=== PATIENT | female | born 1930 | race Caucasian/White ===

== ENCOUNTER 2016-12-04 16:30 | Emergency (ER) | payer MEDICARE, BC ==
[~2016-12-04] VITALS: Ht 165.1 cm; Wt 63.6 kg
[~2016-12-04 16:30] MED LIST: AMLODIPINE; ASPI325T6 PO; ASPIR-LOW81 MG PO; ASPIRIN 81M81 MG/TA2 PO; ASPIRIN E.C. 8181 MG PO; ATENOLOL25 MG PO; BONIVA PO; CALAN SR240 MG PO; CALCIUM600 MG PO; CALTRATE 600 +1 TAB PO; CELEBREX 200MG200 MG PO; CENTRUM1 TAB PO; DIOVAN PO; DOXYCYCLINE 50M50 MG PO; DULCOLAX S10 MG/SUPP RC; FORTEO250 MCG/ML SC; HCTZ; HCTZ 25MG TAB25 MG PO; MAREPA1200 MG PO; MIRALAX PA17 GM/Dose PO; MULTIPLE VITAMI1 CAP PO; NORCO 325 MG-51 TAB PO; NORCO 325 MG-7.1 TAB PO; NORVASC2.5 MG PO; NORVASC5 MG PO; OSCAL 500 TAB500 MG PO; OXYCODONE5 M1 PO; PLAQUENIL PO; PRILOSEC 10MG10 MG PO; PRILOSEC 20MG20 MG PO; PROTONIX 40MG T40 MG PO; REMERON 15M15 MG/TA1 PO; TENORMIN 2525 MG/TAB PO; ULTRAM 50MG TAB50 MG PO; VERAPAMIL120 MG/TA1 PO; VICODIN 5/5001 UDTAB PO; VITAMIN B122500 MCG SL; VITAMIN D 1001000 IU PO; ZOLOFT 50MG50 MG PO
[2016-12-04 16:36] VITALS: TEMP 98.1
[2016-12-04 17:14] LABS: BASO % 0.8 % (0.0-2.0); EOS # 0.2 (0.0-0.7); EOS % 3.2 % (0-4.0); GRAN # 2.9 (1.4-6.5); GRAN % 57.1 % (42.2-75.2); HEMATOCRIT 36.2 % (37.0-47.0); HEMOGLOBIN 11.9 g/dl (12.5-16.0); LYMPH # 1.5 (1.2-3.4); LYMPH % 28.6 % (20.0-51.0); MEAN CELL VOLUME 94 fl (80.0-100.0); MEAN CORPUSCULAR HEMOGLOBIN 31 pg (27.0-31.0); MEAN CORPUSCULAR HGB CONC 33 g/dl (33.0-37.0); MEAN PLATELET VOLUME 9.4 fl (7.4-10.4); MONO # 0.5 (0.1-0.6); MONO % 10.3 % (1.7-9.3); PLATELET COUNT 199 K/mm3 (130-400); RED BLOOD COUNT 3.87 M/mm3 (4.10-5.30); WHITE BLOOD COUNT 5.1 K/mm3 (4.8-10.8)
[2016-12-04 17:27] LABS: ADJUSTED CALCIUM 9.3 mg/dL (8.4-10.2); ALANINE AMINOTRANSFERASE 38 U/L (9-52); ALBUMIN 4.2 gm/dL (3.5-5.0); ALKALINE PHOSPHATASE 65 U/L (50-136); ANION GAP 11 mmol/L (7-16); BILIRUBIN,TOTAL 0.7 mg/dL (0.0-1.0); BLOOD UREA NITROGEN 11 mg/dL (7-17); CALCIUM 9.5 mg/dL (8.4-10.2); CARBON DIOXIDE 27 mmol/L (22-30); CHLORIDE 96 mmol/L (98-107); CREATININE, serum 0.69 mg/dL (0.52-1.25); GLUCOSE 92 mg/dL (74-106); POTASSIUM 3.7 mmol/L (3.4-5.0); SODIUM 133 mmol/L (137-145); TOTAL PROTEIN 7.8 gm/dL (6.4-8.2)
[2016-12-04 17:38] LABS: B-TYPE NATRIURETIC PEPTIDE 767 pg/mL (0-450); TROPONIN-I < 0.012 ng/mL (0.000-0.034)
[2016-12-04] MEDS ORDERED: PRINIVIL40 MG PO (17:54)
[2016-12-04] MEDS ORDERED: PROTONIX20 MG PO (17:55)
[2016-12-04] MEDS ORDERED: ZOLOFT 25MG25 MG PO (17:56)
[2016-12-04 19:13] VITALS: BP 135/82; PULSE 67
== END 2016-12-04 19:13 | disposition home or self-care (01) ==
LOC: COL.ER 16:30
PROVIDERS: Emergency Medicine
DX: I10 Essential (primary) hypertension (principal)

== ENCOUNTER → 2016-12-24 | Outpatient (CLI) | payer MEDICARE, BC ==
[~2016-12-24] MED LIST changes: +PRINIVIL40 MG PO; +PROTONIX20 MG PO; +ZOLOFT 25MG25 MG PO
== END ==
LOC: COL.RAD 09:07
DX: M25.512 Pain in left shoulder (principal)
CPT/HCPCS: J3301; Q9967

== ENCOUNTER → 2017-02-02 | Outpatient (CLI) | payer MEDICARE, BC | LOC: COL.RAD 13:06 | DX: K22.4 Dyskinesia of esophagus (principal); K44.9 Diaphragmatic hernia without obstruction or gangrene ==

== ENCOUNTER 2017-03-02 14:52 | Outpatient (RCR) | payer MEDICARE, BC | END 2017-05-31 | disposition home or self-care (01) | LOC: WSST | DX: K22.4 Dyskinesia of esophagus (principal) | CPT/HCPCS: G8996-GN; G8997-GN ==

== ENCOUNTER → 2017-09-06 | Outpatient (CLI) | payer MEDICARE, BC | LOC: MC.RAD 13:44 | DX: Z12.31 Encounter for screening mammogram for malignant neoplasm of breast (principal) ==

== ENCOUNTER 2018-01-01 13:16 | Emergency (ER) | payer MEDICARE, BC ==
[~2018-01-01] VITALS: Ht 167.6 cm; Wt 72.7 kg
[~2018-01-01 13:16] MED LIST changes: +NORVASC 5MG5 MG/TAB PO; -NORVASC2.5 MG PO; -PROTONIX20 MG PO
[2018-01-01 13:22] VITALS: TEMP 97.8
[2018-01-01] MEDS ORDERED: COZAAR100 MG PO (14:36)
[2018-01-01] MEDS ORDERED: TOPROL XL 50MG50 MG PO (14:36)
[2018-01-01] MEDS ORDERED: ALDACTONE 25MG25 M1 PO (14:36)
[2018-01-01 15:58] VITALS: BP 155/90; PULSE 64
== END 2018-01-01 16:07 | disposition home or self-care (01) ==
LOC: COL.ER 13:20
DX: S00.93XA Contusion of unspecified part of head, initial encounter (principal); Z79.82 Long term (current) use of aspirin; W18.09XA Striking against other object with subsequent fall, initial encounter; Y92.009 Unspecified place in unspecified non-institutional (private) residence as the place of occurrence of the external cause

== ENCOUNTER 2018-03-28 14:00 | Outpatient (RCR) | payer MEDICARE, BC ==
[~2018-03-28 14:00] MED LIST changes: +ALDACTONE 25MG25 M1 PO; +COZAAR100 MG PO; +TOPROL XL 50MG50 MG PO
== END 2018-04-03 13:48 | disposition home or self-care (01) ==
LOC: MKS.ESL.PT 14:00
DX: R26.89 Other abnormalities of gait and mobility (principal); R29.6 Repeated falls; Z87.81 Personal history of (healed) traumatic fracture
CPT/HCPCS: G8978-GP; G8979-GP

== ENCOUNTER → 2018-04-18 | Outpatient (CLI) | payer MEDICARE, BC | LOC: COL.RAD 10:21 | DX: M25.512 Pain in left shoulder (principal) | CPT/HCPCS: J3301; Q9967 ==

== ENCOUNTER → 2018-05-22 | Outpatient (CLI) | payer MEDICARE, BC | LOC: COL.RAD 12:46 | DX: M25.551 Pain in right hip (principal) | CPT/HCPCS: J3301; Q9967 ==

== ENCOUNTER 2018-06-29 10:21 | Inpatient (IN) | payer MEDICARE, BC ==
[~2018-06-29] VITALS: Ht 152.4 cm; Wt 62.0 kg
[2018-07-26] MEDS ORDERED: NORCO 325 MG-51 TAB PO (07:02)
[2018-07-26] MEDS ORDERED: ADVIL200 MG PO (07:44)
[2018-07-26] MEDS ORDERED: FERRO-TIME325 MG PO (07:45)
[2018-07-26] MEDS ORDERED: TYLENOL 500MG500 MG PO (07:45)
[2018-07-26] MEDS ORDERED: VITAMIN C500 MG PO (07:46)
[2018-07-26] MEDS ORDERED: FOLIC ACID 40400 MCG PO (07:46)
[2018-07-26] MEDS ORDERED: ULTRAM ER100 MG PO (07:48)
[2018-08-03] VITALS (11 sets, daily range): BP systolic 97–129; BP diastolic 57–69; PULSE 60–76; TEMP 97.2–98.4
[2018-08-04 00:21] VITALS: BP 117/55; PULSE 73; TEMP 98.2
[2018-08-04 04:31] VITALS: BP 136/70; PULSE 72; TEMP 98.5
[2018-08-04 07:58] VITALS: BP 124/87; PULSE 68; TEMP 97.9
[2018-08-04 08:41] LABS: HEMATOCRIT 27.7 % (37.0-47.0); HEMOGLOBIN 9.2 g/dl (12.5-16.0)
[2018-08-04 11:34] VITALS: BP 130/63; PULSE 66; TEMP 97.6
[2018-08-04 16:18] VITALS: BP 116/62; PULSE 68; TEMP 97.5
[2018-08-04 19:32] VITALS: BP 127/68; PULSE 67; TEMP 97.6
[2018-08-05 03:39] VITALS: BP 117/63; PULSE 62; TEMP 98.2
[2018-08-05 07:29] VITALS: BP 127/72; PULSE 76; TEMP 98.8
[2018-08-05 12:55] VITALS: BP 123/70; PULSE 78; TEMP 98.8
[2018-08-05 17:25] VITALS: BP 125/72; PULSE 78; TEMP 98.8
[2018-08-05 19:28] VITALS: BP 140/95; PULSE 64; TEMP 98.2
[2018-08-05 20:59] VITALS: BP 121/61; PULSE 62; TEMP 97.7
[2018-08-06 05:17] VITALS: BP 128/59; PULSE 64; TEMP 98.2
[2018-08-06 07:57] LABS: BASO % 0.3 % (0.0-2.0); EOS # 0.1 (0.0-0.7); EOS % 1.7 % (0-4.0); GRAN # 5.3 (1.4-6.5); GRAN % 75.1 % (42.2-75.2); LYMPH % 14.9 % (20.0-51.0); MEAN CELL VOLUME 97 fl (80.0-100.0); MEAN CORPUSCULAR HGB CONC 33 g/dl (33.0-37.0); MEAN PLATELET VOLUME 8.9 fl (7.4-10.4); MONO # 0.5 (0.1-0.6); MONO % 7.4 % (1.7-9.3); PLATELET COUNT 186 K/mm3 (130-400); REDCELL DISTRIBUTION WIDTH-CV 14.3 % (11.5-14.5)
[2018-08-06 08:00] LABS: HEMATOCRIT 28.2 % (37.0-47.0); HEMOGLOBIN 9.3 g/dl (12.5-16.0); MEAN CORPUSCULAR HEMOGLOBIN 32 pg (27.0-31.0)
[2018-08-06 08:44] VITALS: BP 106/56; PULSE 64; TEMP 97.7
[2018-08-06 12:58] VITALS: BP 107/70; PULSE 62; TEMP 97.9
[2018-08-06 13:58] VITALS: BP 107/70; PULSE 62; TEMP 97.9
== END 2018-08-06 15:10 | DRG 470 ==
LOC: JCC 08-03 06:30
PROVIDERS: Orthopaedic Surgery
PROC: 0QP604Z Removal of Internal Fixation Device from Right Upper Femur, Open Approach (ICD-10-PCS; 2018-08-03)
PROC: 0SR90JA Replacement of Right Hip Joint with Synthetic Substitute, Uncemented, Open Approach (ICD-10-PCS; principal; 2018-08-03 11:15)
DX: M16.51 Unilateral post-traumatic osteoarthritis, right hip (principal); M87.222 Osteonecrosis due to previous trauma, left humerus; M87.251 Osteonecrosis due to previous trauma, right femur; M19.112 Post-traumatic osteoarthritis, left shoulder; F32.9 Major depressive disorder, single episode, unspecified; I10 Essential (primary) hypertension; M32.9 Systemic lupus erythematosus, unspecified; M06.9 Rheumatoid arthritis, unspecified; M35.00 Sjogren syndrome, unspecified
CPT/HCPCS: A4314; A9284; C1713; C1776; J0690; J1100; J2250; J2405; J2704; J3010; J7120

== ENCOUNTER → 2018-07-27 | Outpatient (CLI) | payer MEDICARE, BC ==
[~2018-07-27] MED LIST changes: +ADVIL200 MG PO; +FERRO-TIME325 MG PO; +FOLIC ACID 40400 MCG PO; +TYLENOL 500MG500 MG PO; +ULTRAM ER100 MG PO; +VITAMIN C500 MG PO
[2018-07-27 16:16] LABS: HIV 1/2 Antibodies Non-Reactive; HIV-1p24 Antigen Non-Reactive
== END ==
LOC: COL.LAB 15:10
PROVIDERS: Orthopaedic Surgery
DX: Z01.812 Encounter for preprocedural laboratory examination (principal); M16.11 Unilateral primary osteoarthritis, right hip

== ENCOUNTER → 2018-07-31 | Outpatient (CLI) | payer MEDICARE, BC | LOC: COL.VAS 08:00 | DX: I35.1 Nonrheumatic aortic (valve) insufficiency (principal); I34.0 Nonrheumatic mitral (valve) insufficiency; I51.7 Cardiomegaly ==

== ENCOUNTER → 2018-08-01 | Outpatient (REF) ==
[2018-08-01 09:35] LABS: COLLECTION METHOD CLEAN CATCH
[2018-08-01 09:46] LABS: BASO % 0.2 % (0.0-2.0); EOS % 0.4 % (0-4.0); GRAN # 4.1 (1.4-6.5); GRAN % 73.1 % (42.2-75.2); HEMOGLOBIN 10.7 g/dl (12.5-16.0); LYMPH # 0.9 (1.2-3.4); LYMPH % 15.3 % (20.0-51.0); MEAN CELL VOLUME 96 fl (80.0-100.0); MEAN CORPUSCULAR HEMOGLOBIN 32 pg (27.0-31.0); MEAN CORPUSCULAR HGB CONC 33 g/dl (33.0-37.0); MEAN PLATELET VOLUME 9.1 fl (7.4-10.4); MONO # 0.5 (0.1-0.6); MONO % 9.6 % (1.7-9.3); PLATELET COUNT 164 K/mm3 (130-400); RED BLOOD COUNT 3.35 M/mm3 (4.10-5.30); REDCELL DISTRIBUTION WIDTH-CV 14.1 % (11.5-14.5)
[2018-08-01 09:48] LABS: HEMATOCRIT 32.1 % (37.0-47.0)
[2018-08-01 09:49] LABS: MUCOUS Present /lpf; PH 7 (5-8); SQUAMOUS EPITHELIAL 0-2 /hpf; URINE APPEARANCE Clear; URINE BACTERIA None Seen /hpf; URINE BILIRUBIN Negative (NEGATIVE); URINE BLOOD Negative (NEGATIVE); URINE COLOR Yellow; URINE GLUCOSE Negative (NEGATIVE); URINE KETONE Negative (NEGATIVE); URINE LEUKOCYTE ESTERASE Negative (NEGATIVE); URINE NITRATE Negative (NEGATIVE); URINE PROTEIN(semi-quant) Negative (NEGATIVE); URINE RBC 0-2 /hpf; URINE UROBILINOGEN Negative (NEGATIVE)
[2018-08-01 10:01] LABS: BILIRUBIN,TOTAL 0.4 mg/dL (0.0-1.0); CALCIUM 8.6 mg/dL (8.4-10.2); CREATININE, serum 0.62 mg/dL (0.52-1.25); TOTAL PROTEIN 5.6 gm/dL (6.4-8.2)
== END ==
LOC: ZLAB.STJ 09:33
PROVIDERS: Urology
DX: R68.89 Other general symptoms and signs (principal); R79.89 Other specified abnormal findings of blood chemistry; R79.1 Abnormal coagulation profile

== ENCOUNTER 2018-10-24 11:36 | Inpatient (IN) | payer MEDICARE, BC ==
[~2018-10-24] VITALS: Ht 167.6 cm; Wt 69.2 kg
[~2018-10-24 11:36] MED LIST changes: +CALCIUM CARBON650 M2; -CALCIUM600 MG PO; +MOTRIN 600600 MG/TAB PO
[2018-10-24 14:12] VITALS: BP 131/72; PULSE 58; TEMP 97.6
--- NOTE | 2018-10-24 15:11 | NUR ---
Patient arrived from Medical unit to room #336 at 1 PM. Therapy started working with her right away. Patient has had one episode of emises since arriving and working with OT, but now reports that she is feeling better. Will continue to monitor.
[2018-10-24 16:54] VITALS: BP 148/61; PULSE 56
--- NOTE | 2018-10-24 17:00 | NUR ---
Patient had another episode of emises when working with OT following shower. See new order for Zofran per Dr. Newman. Patient was able to take the zofran. Will continue to monitor.
--- NOTE | 2018-10-24 23:37 | NUR ---
THE PT WAS BEDRESTING, VISITING WITH HER SON THE SHIFT BEGAN. SON STOPPED AT NURSES STATION AND VERBALIZED THAT HE WILL BRING DPOA\LIVING WILL PAPERWORK. ASSESSMENT B COMPLETED. HS SNACK OF VANILLA SHAKE AND KIMBERLI CRACKERS. FOLLOWED BY ANIBAL 2 TABS AND HS MEDS. APPEARS TO HAVE GOOD EFFECT A SHORT TIME LATER, RESTING WITH EYES CLOSED, RESP EVEN.
--- NOTE | 2018-10-25 03:11 | NUR ---
bedresting with eyes closed, resp even. uses call light appropriately.
[2018-10-25 06:03] VITALS: BP 128/69; PULSE 62; TEMP 97.4
[2018-10-25 06:06] LABS: BASO % 0.4 % (0.0-2.0); EOS # 0.1 (0.0-0.7); EOS % 2.4 % (0-4.0); LYMPH # 0.9 (1.2-3.4); LYMPH % 20.2 % (20.0-51.0); MEAN CELL VOLUME 96 fl (80.0-100.0); MEAN CORPUSCULAR HGB CONC 33 g/dl (33.0-37.0); MONO # 0.5 (0.1-0.6); MONO % 11.6 % (1.7-9.3); PLATELET COUNT 129 K/mm3 (130-400); REDCELL DISTRIBUTION WIDTH-CV 13.5 % (11.5-14.5)
[2018-10-25 06:11] LABS: HEMATOCRIT 29.8 % (37.0-47.0); HEMOGLOBIN 9.8 g/dl (12.5-16.0); MEAN CORPUSCULAR HEMOGLOBIN 32 pg (27.0-31.0)
[2018-10-25 06:15] LABS: CALCIUM 9.2 mg/dL (8.4-10.2); CREATININE, serum 0.92 mg/dL (0.52-1.25); MAGNESIUM 1.7 mg/dL (1.6-2.3); POTASSIUM 4.5 mmol/L (3.4-5.0)
--- NOTE | 2018-10-25 08:31 | NUR ---
Report from VEENA Prieto. Pt ate breakfast in bed, took pills whole with thin liquids, pain meds given. Pt one assist with providing a hand for her to pull herself out of bed, set up assist for upper body dressing, pt got up with two attempts from bed and used 4WW and GB to amb to BR with toilet riser. Assisted with lower body dressing d/t time for PT. Tylenol given. Pt alert and pleasant, wearing own underwear and continent, passed lots of gas.
--- NOTE | 2018-10-25 12:21 | NUR ---
First visit from the lithograph designer. No needs right now.
--- NOTE | 2018-10-25 14:04 | NUR ---
Family brought DNR and Living Will papers, copies to chart. She stated that pt had trouble with [place] before. stopped [place] and started bowel meds and PRN ultram. Pt to chair for lunch.
--- NOTE | 2018-10-25 14:23 | NUR ---
POOJA Villegas reports that pt was having difficulty voiding but no discomfort.
--- NOTE | 2018-10-25 14:30 | NUR ---
Pt took pain meds with antolin crackers and sprite.
--- NOTE | 2018-10-25 15:41 | NUR ---
VICTORINA met with patient to discuss discharge planning and IPR team conference notes. Patient lives alone in [place]. [facility] had [facility] but reports she was dismissed tuesday. She is open to having them again if it recommended. Patients PCP is Dr Henderson and she obtains her medicaiotns from [facility]. Patient has a cane and a walker at home. VICTORINA talked with her about scheduling a family meeting. She would like VICTORINA to call her son Carlos ([phone]). VICTORINA discussed the set dc date of 11/03. She is comfortable with this at this time. VICTORINA called Carlos who reports him and his will be able to be at a family meeting at 2pm on Tue11/01/18. VICTORINA will continue to follow.
[2018-10-25 17:46] VITALS: BP 114/64; PULSE 60; TEMP 97.6
--- NOTE | 2018-10-25 19:30 | NUR ---
HS meds all reviewed and given. Patient min 1 with walker to the bathroom and manages all toileting tasks. Undresses self and dresses upper body with set up help only and lower body with assist right pajama pants onto RLE. Max assist with legs into bed and elevated on pillow. Declines snack at this time.
--- NOTE | 2018-10-25 21:00 | NUR ---
Patient rests with eyes closed. Respirations with ease.
--- NOTE | 2018-10-26 00:02 | NUR ---
PATIENT REPORTS CONTINUEING PELVIC SPASMS/CRAMPS 8-06/26 AFTER TRAMADOL REPEATED EARLIER. NELLY DUENAS NOTIFIED AND NEW ORDER RECEIVED TO GIVEN ZOFRAN WAIT 15 MINUTES AND GIVE ROXYCODONE 5MG. REVIEWED WITH PATIENT AND GIVEN ORDERED. PATIENTS HIPS REPOSTIONED OVER IN BED AND SCDS REMOVED.
--- NOTE | 2018-10-26 00:20 | NUR ---
Into give roxycodone following zofran and patient declines at this time. Reports spasms gone since removal of scd's.
--- NOTE | 2018-10-26 02:32 | NUR ---
PATIENT RESTS WITH EYES CLOSED. RESPIRATIONS WITH EASE.
--- NOTE | 2018-10-26 03:45 | NUR ---
Patient having high level of pain and cramping sensation back to pelvis. Up with heavy mod assist to sit up in bed. Mod assist to stand from bed and stool riser. Also required assist to pull up pants on left side. Max assist with legs into bed. Declines tramadol and tylenol. Crackers given and takes marisol 5mg.
[2018-10-26 03:57] VITALS: BP 128/86; PULSE 70; TEMP 97.7
[2018-10-26 04:00] VITALS: BP 114/65; PULSE 66; TEMP 98.2
[2018-10-26 07:50] VITALS: BP 142/78
--- NOTE | 2018-10-26 09:48 | NUR ---
Patient currently working with therapy at this time. Patient had a lot of pain this morning and was given an ice pack to put on pelvic area as well as prn mireya. Patient reporting that Tramadol has not been very effective for her yesterday. Will continue to monitor pain status throughout day.
--- NOTE | 2018-10-26 11:30 | NUR ---
Patient reports not having a BM since last Tuesday. She has been given scheduled bowel meds, rehab cocktail all with no effect. She is passing gas and has active bowel sounds. Discussed a supository this afternoon. Will continue to monitor.
[2018-10-26 17:57] VITALS: BP 169/84; PULSE 78; TEMP 98
--- NOTE | 2018-10-26 20:01 | NUR ---
Call to MARIA T Mendez regarding patient in extreme pain. See new orders for pain meds. 1 unsuccesful attempt to put in IV to Left wrist. Successfully placed 22G IV catheter to Rt AC with patient tolerating with minimal discomfort reported. Patient given prn dilaudid with some effect. Night nurse was given report on patient will continue to monitor her pain level.
--- NOTE | 2018-10-26 20:30 | NUR ---
Patient had relief from muscle spasm across buttucks following dilaudid but returned and flexeril given.
--- NOTE | 2018-10-26 22:00 | NUR ---
Patient reports slept following flexeril. Reports muscle spasms off and on and crackers followed by veronika page.
--- NOTE | 2018-10-26 23:15 | NUR ---
Patient rests with eyes closed. Respirations with ease.
--- NOTE | 2018-10-27 | NUR ---
Patient having high level of pain/muscle spasms and is max assist to sit up in bed/mod assist to BSC. No void. Assist with RLE into bed and pillow under legs. [place] and warm pack given.
--- NOTE | 2018-10-27 00:56 | NUR ---
Patient resting awake in bed. States just had a slight muscle spasm.
--- NOTE | 2018-10-27 02:15 | NUR ---
Patient rests with eyes closed. Respirations with ease.
--- NOTE | 2018-10-27 03:19 | NUR ---
Patient states "I tried to call you but it just came out". Incontinent urine onto linen and BLOCK PRESS OPERATOR changes. No complaints of pain and rolled self side to side.
[2018-10-27 03:23] VITALS: BP 101/72; PULSE 71; TEMP 97.5
--- NOTE | 2018-10-27 05:26 | NUR ---
patient now resting with eyes closed. Respirations with ease.
--- NOTE | 2018-10-27 06:00 | NUR ---
Patient reports woke up with severe muscle cramping buttucks and right hip. 07/26. "can't take it anymore". Мария DUENAS notified and reported had flexeril at 5am. Reported going to give dilaudid IV. Мария states give dilaudid and norco 2 tabs. Max assist onto bedpan.
--- NOTE | 2018-10-27 07:34 | NUR ---
Report from VEENA Colin. Pt supine in bed, breakfast tray over bed. Assisted with raising HOB slowly as pt unable to flor d/t pain, slowly adjusted up to 60* and pt had too much pain, lowered to about 45*. Pt rates pain in tailbone and legs 10/10, asking for the IV pain med, "It's the only thing that helps, but it doesn't last very long." Pt denies nausea for the past day. Instructed pt that she should not eat laying down, verbalizes understanding. Pt states she knows if she doesn't do therapy, then she cannot stay in rehab. Dr. Newman notified, here now to see pt.
--- NOTE | 2018-10-27 09:36 | NUR ---
See phys. notificatn note re: ortho consult
--- NOTE | 2018-10-27 09:57 | NUR ---
Pt given [place] ice cream per request.
--- NOTE | 2018-10-27 09:59 | NUR ---
MARIA T Zhu reports that rads showed no changes. Informed pt, cont to hold therapies today. Resume tomorrow.
--- NOTE | 2018-10-27 11:27 | NUR ---
Family visiting, aware of current status.
--- NOTE | 2018-10-27 13:49 | NUR ---
Put pt's legs down in recliner, alarm on, call light in reach. Pt states pain 7/10 after pain pill one hour ago. Pt states, "My [id number]-wyx isn't here so I can have another pain pill." Given one norco with strawberry milkshake.
--- NOTE | 2018-10-27 16:50 | NUR ---
Pt had some coughing while laying down in bed, then voiced needing to toilet, two assist with max cues to pivot transfer to BSC, pt verbalizes much discomfort, difficulty following commands.
[2018-10-27 16:53] VITALS: BP 155/91; PULSE 72; TEMP 97.6
--- NOTE | 2018-10-27 19:47 | NUR ---
Pt returned to bed prior to shift change, BLE on pillow, SCDs in place, bed alarm on, call light in reach, HOB@20*. Report to VEENA Escalante.
[2018-10-28 03:55] VITALS: BP 124/70; PULSE 64; TEMP 97.7
--- NOTE | 2018-10-28 08:20 | NUR ---
Report from VEENA Escalante. Pt reports nausea and pain 10/10, given zofran with one dilaudid and miralax in applejuice. Pt had half of breakfast in bed. Will attempt other meds later.
--- NOTE | 2018-10-28 09:32 | NUR ---
KONSTANTIN Schultz reports pt declined group therapy today, needed to toilet and used bedpan, two assist to boost up in bed, vocalizing pain.
--- NOTE | 2018-10-28 12:15 | NUR ---
Pt needed to toilet, up to BSC with 4WW, then to chair with alarm on, call light in reach, set up for lunch.
--- NOTE | 2018-10-28 13:30 | NUR ---
Pt in chair with eyes closed
[2018-10-28 15:53] VITALS: BP 115/62; PULSE 65; TEMP 98.5
--- NOTE | 2018-10-28 16:32 | NUR ---
Pt to BSC, became anxious and says she needs to get up, assisted, two assist with max verbal cues to step to the chair, pt frantic and not following cues d/t pain, alarm on. Call light in reach. Calming down once seated. Ice pack to [facility] area
--- NOTE | 2018-10-28 17:39 | NUR ---
Pt called to return to bed from chair. Attempted few times with one assist, pt not straightening knees and hollering that she cannot do it. Called for assist. Pt states she saw several people getting a cat out of the tree (out the window). Pt comments, "I hope I'm not ruining my new hip," and when informed that help is going to be a few minutes, "I wont live that long." Positioned pillow for comfort in chair, standing by. Pt moaning. Noted that this afternoon pt was bedresting and was moving her legs in bed alternating without moaning out loud.
--- NOTE | 2018-10-28 17:55 | NUR ---
Two assist to return to bed, pillow under knees, SCDs in place, alarm on, call light in reach. Pt passed gas, belching.
--- NOTE | 2018-10-28 19:55 | NUR ---
PRE TREATED NAUSEA WITH ZOFRAN ODT.
--- NOTE | 2018-10-28 20:18 | NUR ---
PT IS VERY ANXIOUS AND CRYING OUT FROM PELVIC PAIN. SEE MAR FOR PAIN MED AND BOWEL MEDS GIVEN. PT WANTS A MARRUFO. PROVIDED SUPPORT BUT FIRM ON NEEDING TO MOVE. PT VERBALIZED UNDERSTANDING ON PLAN OF CARE. PT RELATES SHE JUST CANT DO THERAPIES SHE DOESN'T CARE IF THIS MEANS SHE HAS TO TRANSFER FROM [facility]. REFUSED SCD'S BILAT. PROVIDED WARM PACK TO PELVIC AREA AND LEGS. FENTANNYL PATCH TO RT CHEST AREA INTACT. CALL LIGHT IN REACH. BED ALARM SET.
--- NOTE | 2018-10-28 21:08 | NUR ---
PT STILL HAVING PAIN. TRIED WARM PACKS. PT INCONTINENT OF URINE. 2:1 CHANGED HER CLOTHING AND LINENS. REPOSITIONED. REMINDED HER THEY STARTED THE FENTANNYL PATCH EARLIER TODAY. SHE HAD FORGOT ABOUT THAT.
--- NOTE | 2018-10-28 22:30 | NUR ---
PT RESTING IN BED. WAKES EASILY. PT RELATES FINALLY GETTING SOME PAIN RELIEF.
--- NOTE | 2018-10-28 23:58 | NUR ---
SEE MAR FOR NORCO GIVEN PRIOR TO ESCULATION OF PAIN LEVEL. GAVE WITH KIMBERLI WILCOX.
--- NOTE | 2018-10-29 02:15 | NUR ---
PT WOKE UP ALITTLE CONFUSED. CONVINCED HER ROOM WAS SWITCHED WITH ANOTHER. REASSURED PT. BACK TO SLEEP NOW.
[2018-10-29 04:08] VITALS: BP 99/65; PULSE 67; TEMP 97.9
--- NOTE | 2018-10-29 04:52 | NUR ---
PT HAS HAD A MORE RESTFUL NIGHT.
--- NOTE | 2018-10-29 07:40 | NUR ---
Report from VEENA Escalante. Pt called to be set up for breakfast. Repositioned herself in bed with nurse adjusting bed positions. Gripper socks and yellow gown in place. Pt independent with eating. C/o sharp pains in hips and requested head of bed be lowered some, provided. Bed alarm on, call light in reach.
--- NOTE | 2018-10-29 09:14 | NUR ---
Pt reports seeing cats in the trees outside and people trying to get them out. Two assist to transfer from bed to BSC with max verbal cues, less moaning until getting up from BSC and going to chair, pt confused about directions. Ice pack to tailbone in chair, alarm on, call light in reach.
--- NOTE | 2018-10-29 10:37 | NUR ---
Pt called to return to bed from recliner, two assist and she was unable to follow cues, states that she is falling when secured. SCDs to BLE on pillow with call light and alarm. Suppository given.
--- NOTE | 2018-10-29 12:01 | NUR ---
Family visiting, reviewed POC
--- NOTE | 2018-10-29 12:57 | NUR ---
Max two to BSC then chair. Alarm on, call light in reach, set up for rest of lunch.
[2018-10-29 16:02] VITALS: BP 145/72; PULSE 94; TEMP 97.2
--- NOTE | 2018-10-29 16:08 | NUR ---
Son visiting, orienting pt that there are no cats in the tree outside, and enc to work with therapy tomorrow. VSS, pt in chair with alarm on, call light in reach, fresh water, gripper socks and yellow gown.
--- NOTE | 2018-10-29 20:30 | NUR ---
PT IN BED. HIGHLY ANXIOUS AND CRYING. PT ALITTLE CONFUSED CLAIMING HER SON SAID SHE COULDNT HAVE ANYMORE PAIN MEDICATION. PROVIDED EMOTIONAL SUPPORT. ENC PT TO CALM. CHANGED DIAPER- INCONT OF URINE. TOO SOON FOR PAIN MEDS RIGHT NOW. REPOSITIONED FOR COMFORT. CALL LIGHT IN REACH. BEDLARM SET. SON HERE NOW. PT MORE CALM.
--- NOTE | 2018-10-29 21:30 | NUR ---
DC'D RT F/A INT NEEDLE.
--- NOTE | 2018-10-30 02:43 | NUR ---
PT NOT SLEEPING TONIGHT. CONFUSED. WORRIED ABOUT USING THE CALL LIGHT TO CALL HER SO FOR A RIDE HOME LATER. PT INCONTINENT OF URINE. CHANGED DIAPER AND CHUX.
--- NOTE | 2018-10-30 02:45 | NUR ---
PT YAWNS. MOUTH IS RED TONGUE HAS WHITE COATING ON IT. PT DRINKING QUITE A BIT TONIGHT.
--- NOTE | 2018-10-30 05:38 | NUR ---
PT INCONTINENT OF URINE. CHANGED DIAPERS. PT SAID THE PAIN IS KILLING ME. OFFERED PAIN MED - DECLINED.
[2018-10-30 05:44] VITALS: BP 142/60; PULSE 72; TEMP 98.4
--- NOTE | 2018-10-30 07:48 | NUR ---
Patient resting in bed, alarm on and call light in reach watching TV. Patient has a sore to the right upper inner lip and whiteness to back tongue and right side of inner cheek. Will report to Dr. Newman. Patient reports having pain to her mouth. Patient refused her breakfast this morning and this nurse ordered something different for her. Awaiting for it to arrive. Patient given prn zofran and flexeril to help with pelvic spasms this morning. Will continue to monitor. Patient was alert and oriented x 4 this morning, but then stated, "I see those cats in the tree. There are a lot of them. This will be reported to Dr. Newman as well.
[2018-10-30 11:06] LABS: BASO % 0.3 % (0.0-2.0); EOS # 0.1 (0.0-0.7); EOS % 1.9 % (0-4.0); GRAN # 4.4 (1.4-6.5); GRAN % 77.3 % (42.2-75.2); LYMPH # 0.5 (1.2-3.4); LYMPH % 8.3 % (20.0-51.0); MEAN CELL VOLUME 94 fl (80.0-100.0); MEAN CORPUSCULAR HEMOGLOBIN 31 pg (27.0-31.0); MEAN CORPUSCULAR HGB CONC 33 g/dl (33.0-37.0); MEAN PLATELET VOLUME 8.6 fl (7.4-10.4); MONO # 0.7 (0.1-0.6); MONO % 11.5 % (1.7-9.3); PLATELET COUNT 186 K/mm3 (130-400); RED BLOOD COUNT 3.23 M/mm3 (4.10-5.30); REDCELL DISTRIBUTION WIDTH-CV 13.2 % (11.5-14.5)
[2018-10-30 11:10] LABS: HEMATOCRIT 30.5 % (37.0-47.0)
[2018-10-30 11:21] LABS: CALCIUM 8.9 mg/dL (8.4-10.2); CREATININE, serum 0.96 mg/dL (0.52-1.25); MAGNESIUM 1.8 mg/dL (1.6-2.3); POTASSIUM 4.9 mmol/L (3.4-5.0)
--- NOTE | 2018-10-30 11:44 | NUR ---
Critical Chloride was called to this nurse per lab. This critical was called to Dr. Newman. No new orders given. Will continue to monitor.
--- NOTE | 2018-10-30 13:31 | NUR ---
Follow-up visit; Patient thanked Knurling Machine Operator for looking in on her and offering God's blessings.
[2018-10-30 18:30] VITALS: BP 147/80; PULSE 77; TEMP 99.1
--- NOTE | 2018-10-30 19:47 | NUR ---
Patient attended therapies today, but was complaining of pain of 15/10. Ortho was consulted and KUB upright was completed on patient. New new orders per Dr. Garcia. Dr. Garcia would like to see the patient have a large bowel movement and then if patient is still having pain he will consider doing a CT scan of the abdomen. Labs were completed see new orders for IV fluids per Dr. Newman. This nurse had two attempts to start an IV to both left forearm and right forearm with no success. Pressure dressings applied to both areas. Surgical nurse Deneen attempted and was successful with putting in a 22 Gauge to patient's LFA. Patient was started on IV fluids per Dr. Newman orders. Patient was having some hallucinations this morning and this nurse removed the Fentanly patch per Dr. Newman orders. Dr. Newman DC'd the patch. Patient continued to have hallucinations throughout the day. Patient only given one [place] this am and one this afternoon. This nurse put an air mattress on patient's bed to help with tail bone pain. Patient has reported that it is not as painful with the air mattress. Report given to oncoming nurse. Patient has started a swish and swallow to help with thrush in her mouth. Will continue to monitor. Received new orders for patient to have no free water. This was communicated to staff. Patient will need to be put on I&O's as well and this was communicated to staff.
--- NOTE | 2018-10-30 22:07 | NUR ---
Patient disoriented to place tonight and reoriented. Restless and hallucinates at times. One time states someone trying to kill her and another there was a rodent in her room. HS meds reviewed along with flexeril for pain and given earlier in applesauce. IV to right wrist pulled out at shift change and upon 2 attempts without success to restart IV to RFA. Para Educator Lara in and restarted IV outer forearm with 22ga upon 2nd attempt. IVF infuses at 75mls/hr. See MAR for when norco given for pain across buttucks and right hip. Patient incontinent of urine through brief and max 2 assist to change. Repositioned several times up in bed for patient positions self across bed.
--- NOTE | 2018-10-31 01:02 | NUR ---
PATIENT HAS BEEN RESTING WITH EYES CLOSED UNTIL NOW. AWAKE AND HOLLERING OUT. "SHE'S TRYING TO KILL ME". REORIENTED AND EXPLAINED MUST HAVE HAD BAD DREAM. PATIENT STATES "I THINK SO". TAKES SIPS OF FLUID.
--- NOTE | 2018-10-31 03:15 | NUR ---
Patient resting in bed with eyes closed until this time. Awake and repositioned max 1 assist. Incontinent large amount of urine and nurse changes.
[2018-10-31 05:27] VITALS: BP 111/64; PULSE 72; TEMP 97.5
--- NOTE | 2018-10-31 06:00 | NUR ---
Patient given pain med per patient request with am med. Now resting with eyes closed. Respirations with ease. Incontinent of urine and max 2 assist to change earlier.
[2018-10-31 06:51] LABS: CALCIUM 8.6 mg/dL (8.4-10.2); CREATININE, serum 0.79 mg/dL (0.52-1.25); POTASSIUM 4.7 mmol/L (3.4-5.0)
--- NOTE | 2018-10-31 08:41 | NUR ---
Patient crying out complaining of bilateral upper leg cramping when sitted on the toilet. Patient able to use sit to stand better then getting up on her own. She is a max two assist today. Patient given morning meds, and this nurse fed patient as she would not feed herself this morning. Patient requiring a lot of cueing with sitting upright to eat and drink. Complaining of coccyx pain and leg cramping, given prn flexeril. Due to confusion and incontinence have requested a UA/UC be done on patient to check for UTI. Awaiting a return call from Dr. Newman. Will continue to monitor.
[2018-10-31] MEDS ORDERED: NYSTATIN OR100 MU/ML PO (11:57)
[2018-10-31] MEDS ORDERED: LOVENOX 3030 MG/0.3 SQ (11:58)
[2018-10-31] MEDS ORDERED: FLEXERIL5 MG PO (11:58)
[2018-10-31] MEDS ORDERED: MIRALAX PA17 GM/Dose PO (11:59)
[2018-10-31] MEDS ORDERED: COLACE 100100 MG/CAP PO (11:59)
[2018-10-31] MEDS ORDERED: SENOKOT S 50 MG1 TAB PO (11:59)
[2018-10-31] MEDS ORDERED: DULCOLAX S10 MG/SUPP RC (11:59)
[2018-10-31 12:15] VITALS: BP 116/75
--- NOTE | 2018-10-31 12:22 | NUR ---
Straight cath completed with assistance by Jeanna/KONSTANTIN. Output of urine was oddorous and cloudy and was sent to lab for analysis. Patient will be discharging to medical soon.
[2018-10-31 12:30] VITALS: BP 116/75; PULSE 72; TEMP 97.5
[2018-10-31 12:54] LABS: COLLECTION METHOD CATHETER
--- NOTE | 2018-10-31 13:15 | NUR ---
Patient discharged to Medical. Family was called to update on the room change. Patient health summary, discharge summary given to brenda @ Medical. Belongings gathered by Gilma/VEENA and daughter. Patient transported via bed to medical unit by Gilma/VEENA. Patient and daughter denied any questions. Gave report to Brenda @ Medical Unit.
[2018-10-31 13:16] LABS: MUCOUS Present /lpf; PH 7 (5-8); SQUAMOUS EPITHELIAL None Seen /hpf; URINE APPEARANCE Hazy; URINE BACTERIA None Seen /hpf; URINE BILIRUBIN Negative (NEGATIVE); URINE BLOOD Negative (NEGATIVE); URINE COLOR Yellow; URINE GLUCOSE Negative (NEGATIVE); URINE KETONE Negative (NEGATIVE); URINE LEUKOCYTE ESTERASE 3+ (NEGATIVE); URINE NITRATE Negative (NEGATIVE); URINE PROTEIN(semi-quant) Negative (NEGATIVE); URINE RBC 0-2 /hpf; URINE UROBILINOGEN Negative (NEGATIVE)
[2018-10-31] MEDS ORDERED: NORCO 325 MG-51 TAB PO (13:40)
--- NOTE | 2018-11-01 15:41 | NUR ---
Discharge FIM scores evaluated by team. Team judged that the nursing cognition FIM scores were not accurate, as well as nursing did not provide adequate documentation for the reasoning behind their scores. Team feels the FIM scores given by the speech pathologist were more indicative of the pt s cognitive and communicative level of performance. Please refer to speech pathologist s note for specifics. Marga Schwartz, Security Orderly of Acute Rehab
== END 2018-10-31 13:00 | DRG 560 ==
PROVIDERS: ADMIT Internal Medicine
DX: S32.591D Other specified fracture of right pubis, subsequent encounter for fracture with routine healing (principal); E87.1 Hypo-osmolality and hyponatremia; N39.0 Urinary tract infection, site not specified; R44.3 Hallucinations, unspecified; Z66 Do not resuscitate; S32.10XD Unspecified fracture of sacrum, subsequent encounter for fracture with routine healing; W18.30XD Fall on same level, unspecified, subsequent encounter; I10 Essential (primary) hypertension; M32.9 Systemic lupus erythematosus, unspecified; M35.00 Sjogren syndrome, unspecified; E78.5 Hyperlipidemia, unspecified; T40.4X5A Adverse effect of other synthetic narcotics, initial encounter; Z96.641 Presence of right artificial hip joint
CPT/HCPCS: 99222-AI; 99232-AI; 99233-AI; 99239; A9284; J1170; J1650; J7030

== ENCOUNTER → 2018-11-13 | Outpatient (CLI) | payer MEDICARE, BC ==
[~2018-11-13] MED LIST changes: +ASPERCREME1 EACH TP; +ATARAX 10MG10 MG/TAB PO; +COLACE 100100 MG/CAP PO; +FLEXERIL5 MG PO; +LOVENOX 3030 MG/0.3 SQ; +NEURONTIN300 MG/CAP PO; +NYSTATIN OR100 MU/ML PO; +REMERON SOLTAB15 MG PO; +SENOKOT S 50 MG1 TAB PO; +SEROQUEL 2525 MG/TAB PO; +ZANAFLEX CAPSULE2 MG PO
[2018-11-13 11:23] LABS: BASO % 0.5 % (0.0-2.0); EOS % 0.3 % (0-4.0); GRAN # 2.3 (1.4-6.5); GRAN % 61.3 % (42.2-75.2); LYMPH # 0.8 (1.2-3.4); LYMPH % 21.8 % (20.0-51.0); MEAN CELL VOLUME 93 fl (80.0-100.0); MEAN CORPUSCULAR HGB CONC 33 g/dl (33.0-37.0); MEAN PLATELET VOLUME 9.7 fl (7.4-10.4); MONO # 0.6 (0.1-0.6); MONO % 15.6 % (1.7-9.3); PLATELET COUNT 235 K/mm3 (130-400); RED BLOOD COUNT 3.18 M/mm3 (4.10-5.30); REDCELL DISTRIBUTION WIDTH-CV 14.1 % (11.5-14.5)
[2018-11-13 11:29] LABS: HEMOGLOBIN 9.8 g/dl (12.5-16.0); MEAN CORPUSCULAR HEMOGLOBIN 31 pg (27.0-31.0)
[2018-11-13 11:30] LABS: HEMATOCRIT 29.7 % (37.0-47.0)
[2018-11-13 11:37] LABS: CALCIUM 8.7 mg/dL (8.4-10.2); CREATININE, serum 0.59 mg/dL (0.52-1.25); POTASSIUM 4.7 mmol/L (3.4-5.0)
== END ==
LOC: ZLAB.STJ 10:49
PROVIDERS: Urology
DX: R79.89 Other specified abnormal findings of blood chemistry (principal)